=== PATIENT | male | born 1960 | race Caucasian/White ===

== ENCOUNTER 2018-02-14 00:14 | Emergency (ER) | payer BC, SELFPAY ==
[2018-02-14] VITALS (8 sets, daily range): BP systolic 135–160; BP diastolic 74–94; PULSE 73–89; RESP 16–20; TEMP 36.9; O2SAT 96–99; BMI 35.9
--- NOTE | 2018-02-14 00:18 | ED.RN ---
NO OLD EKG'S IN MUSE
--- NOTE | 2018-02-14 00:25 | EKG12_ITS ---
Test Reason : CP Blood Pressure : / mmHG Vent. Rate : 094 BPM Atrial Rate : 094 BPM P-R Int : 152 ms QRS Dur : 112 ms QT Int : 346 ms P-R-T Axes : 052 061 033 degrees QTc Int : 432 ms Normal sinus rhythm Normal ECG Confirmed by DIMPLE ESPINOZA MD ([id number]), proposal editor MIGUEL HANNAH ([id number]) on 02/17/2018 1:03:32 PM Referred By: SULTANA Confirmed By:DIMPLE ESPINOZA MD
--- NOTE | 2018-02-14 00:25 | RAD_ITS ---
STUDY: X-RAY CHEST REASON FOR EXAM: Male, 57 years old. Right-sided chest pain TECHNIQUE: 1 view COMPARISON: None. FINDINGS: The lungs are clear. The heart is not enlarged. No pleural effusions. A small caliber catheter is seen projecting over the right side of the neck and thoracic spine. It is presumably a ventriculoperitoneal shunt catheter Normal visualized thoracic spine. Normal visualized ribs, clavicles, and shoulders. There is no demonstrated abnormality of the visualized soft tissue structures of the upper abdomen. RAD/Chest 1 View (Portable) IMPRESSION: No acute findings in the lungs Electronically Signed: Tony Aiken, at 1:41 EDT Tel , Service support ,
[2018-02-14 00:32] LABS: Absolute Lymphocyte Count 2.18 X10^3/ul (0.83-4.51); Absolute Neutrophil Count 5.7 X10^3/uL (2.0-7.7); Basophil# 0.05 X10^3/uL; Basophil% 0.5 % (0-1); Eosinophil# 0.63 X10^3/uL; Eosinophils% 6.5 % (0-5); Hematocrit 52.5 % (40-54); Hemoglobin 17.6 g/dl (13.0-16.5); Lymphocyte # 2.18 X10^3/ul (4.0); Lymphocyte % 22.3 % (19-41); Mean Corp Hgb Conc 33.5 g/gl (32-36); Mean Corpuscular Hgb 30.6 pg (27.0-32.0); Mean Corpuscular Volume 91.3 fL (80-94); Mean Platelet Vol. 9.9 fl (6.2-12.0); Monocyte# 1.13 X10^3/uL; Monocyte% 11.6 % (0-10); Neutrophil # 5.74 X10^3/uL (2.7-7.7); Neutrophil % 58.8 % (47-70); Platelet Count 235 K/mm3 (150-450); RBC Distribution Width CV 13.2 % (11.6-14.6); RBC Distribution Width SD 43.8 fl (35.1-43.9); Red Blood Count 5.75 M/mm3 (4.6-6.2); White Blood Count 9.8 K/mm3 (4.4-11.0)
[2018-02-14] MEDS: Morphine 4 MG/ML Syringe IV ×2 (00:32→03:14)
[2018-02-14] MEDS: 0.9% Normal Saline 1,000 ML 150 ML IV (00:32)
[2018-02-14] MEDS: Aspirin 81 MG TAB.CHEW 324 MG PO (00:32)
[2018-02-14] MEDS: Ondansetron 4 MG/2 ML Vial IV ×2 (00:32→03:14)
[2018-02-14 00:33] LABS: POSITIVE COUNT NO; POSITIVE DIFFERENTIAL NO; POSITIVE MORPHOLOGY NO
--- NOTE | 2018-02-14 00:36 | ED.VISSUMM ---
- ER Visit Summary Date of Service: 02/14/18 Chief Complaint: Chest pain History of Present Illness: The patient is a 57 M with chest pain in the past couple of days. Today he states the pain has been constant. He points to the right upper chest and states he goes on his right arm. He has had some mild shortness of breath. Pain does not seem to worsen with exertion. He has a history of diabetes and hypertension. He believes he had a stress test the proximal 5 years ago. Physical Examination: Vital signs are significant for blood pressure 160/94, otherwise unremarkable. Patient's lying in bed no acute distress. Head neck examination is normal. Heart is regular rate and rhythm. Lung sounds are clear with good air movement. He has no chest wall pain with palpation. Abdomen is soft nontender. Lower extremity examination reveals no significant calf tenderness or edema. He has strong distal pulses. Test Results: EKG is sinus at 94 with no sign of acute ischemia. CBC is significant only for hemoglobin concentration at 17.6. Chemistry studies are significant for glucose of 165. Troponin is less than 0.015. D-dimer 0.32. Portable chest x-ray reveals chronic changes per my read. Emergency Department Course and Treatment: Patient was given aspirin, morphine, and Zofran. Test results were discussed with him. He would prefer not to be admitted but did agree to stay for 3 hour repeat EKG and blood work. Repeat EKG is unchanged and repeat troponin remains less than 0.015. Patient be discharged to follow-up with his primary care physician. He is encouraged to return if symptoms worsen or any other concerns arise. MARCELINA score: 0/7 Treatment Plan: [] Disposition: Discharge Impression: Chest pain This note was generated with [employer] dictation software. It may contain incorrect words, spelling, and punctuation that were not noted in review of the chart prior to signing ED Disposition - Plan for ED Patient: Chief Complaint: Chest Pain Referrals: Robinson Urbina DO [Primary Care Provider] -
[2018-02-14 00:39] LABS: D-Dimer Quantitative (DVT/PE) 0.32 FEU/ug/m (0.27-0.49)
[2018-02-14 00:43] LABS: Anion Gap 8 (5-15); BUN 20 mg/dL (7-18); BUN/Creat Ratio 16.4 RATIO (10-20); Chloride 105 mmol/L (98-107); Creatinine, Serum 1.22 mg/dL (0.70-1.30); EST Glomerular Filtration Rate 65 mL/min (>60); Est Glom Filt Rate - Afr Amer 79 mL/min (>60); Estimated Creatinine Clearance 68.98 ml/min; Glucose 165 mg/dL (74-106); Potassium 4.1 mmol/L (3.5-5.1); Sodium Level 141 mmol/L (136-145)
--- NOTE | 2018-02-14 03:00 | EKG12_ITS ---
Test Reason : CP Blood Pressure : / mmHG Vent. Rate : 079 BPM Atrial Rate : 079 BPM P-R Int : 166 ms QRS Dur : 100 ms QT Int : 364 ms P-R-T Axes : 043 026 015 degrees QTc Int : 417 ms Normal sinus rhythm Normal ECG Confirmed by DIMPLE ESPINOZA MD ([id number]), index editor MIGUEL HANNAH ([id number]) on 02/17/2018 1:03:47 PM Referred By: SULTANA Confirmed By:DIMPLE ESPINOZA MD
--- NOTE | 2018-02-14 03:27 | ED.DEP ---
ED Disposition - Plan for ED Patient: Disposition: Home or Assisted Living Chief Complaint: Chest Pain Instructions: ED Chest Pain Atypical Unkn Cause Referrals: Robinson Urbina DO [Primary Care Provider] - 3-5 Days
== END 2018-02-14 03:44 | disposition home or self-care (01) ==
PROVIDERS: Emergency Provider Emergency Medicine; Family Provider Preventive Medicine Occupational Medicine; PCP Preventive Medicine Occupational Medicine
DX: R07.9 Chest pain, unspecified (principal); E11.9 Type 2 diabetes mellitus without complications; I10 Essential (primary) hypertension; M19.90 Unspecified osteoarthritis, unspecified site; Z98.2 Presence of cerebrospinal fluid drainage device; Z79.84 Long term (current) use of oral hypoglycemic drugs; Z79.899 Other long term (current) drug therapy
CPT/HCPCS: 71045; 80048; 84484; 85025; 85379; 93005; 96361; 96374; 96375; 96376; 99285; J7030; A4216; J2405

== ENCOUNTER → 2018-08-24 10:18 | Outpatient (CLI) | payer BC, SELFPAY ==
--- NOTE | 2018-08-24 10:23 | MRI_ITS ---
STUDY: MRI LUMBAR SPINE WITHOUT CONTRAST REASON FOR EXAM: Male, 58 years old. Back pain into the right groin x10 years. Stenosis. TECHNIQUE: Standardized fat and water weighted pulse sequences were obtained in the sagittal and axial planes. COMPARISON: None FINDINGS: T10-T11: (Sagittal only). Normal endplates. Mild disc space height narrowing. Small posterior midline disc protrusion. Suspicious severe central canal stenosis. The intervertebral neural foramina are not included. T11-T12: (Sagittal only). Normal T11 inferior endplate. Old anterior wedging of upper T12 vertebral body. Moderate disc space height narrowing. No ventral extradural defect. Normal central canal and bilateral intervertebral neural foramina. Small round left-sided T11 benign vertebral body hemangioma. T12-L1: (Sagittal only). Mild anterior wedging of the vertebral endplates without bone edema. They're presumably from remote injury. Normal disc height, hydration and morphology. Normal central canal and bilateral intervertebral neural foramina. Normal lumbar lordosis. There is no substantial scoliosis. Normal conus medullaris that terminates at the upper T12 vertebral body level. L1-2: Anterior marginal spurs. Schmorl's node in the L1 inferior endplate. Normal L2 superior endplate. Moderate disc space height narrowing. Small posterior bulging disc. Mild to moderate central canal stenosis with an AP canal diameter of 8.3 mm. This is secondary to developmentally short pedicles and dorsal epidural lipomatosis. Mild degenerative facet arthropathy. Normal bilateral intervertebral neural foramina. L2-3: Anterior marginal spurs. Moderately pronounced disc space height narrowing with Modic type I degenerative vertebral marrow edema underneath the left side of the vertebral endplates. Mild degenerative retrolisthesis of L2 on L3. Mild central canal stenosis with an AP canal diameter of 9 mm. This is secondary to developmentally short pedicles and dorsal epidural lipomatosis. Normal bilateral lateral recesses. Mild bilateral degenerative facet arthropathy. Normal bilateral intervertebral neural foramina. L3-4: Pronounced disc space height narrowing with Modic type II degenerative vertebral marrow fatty changes underneath the vertebral endplates. Mild degenerative retrolisthesis of L3 on L4 with small posterior midline disc protrusion. Mild to moderate central canal stenosis with an AP canal diameter of 8.2 mm. Left posterior ligamentum flavum hypertrophy. Mild asymmetric degenerative facet arthropathy. Normal bilateral intervertebral neural foramina. L4-5: Pronounced right-sided disc space height narrowing with mild Modic type II degenerative vertebral marrow fatty changes underneath the right side of the vertebral endplates. No extruded disc fragment. Mild to moderate central canal stenosis with an AP canal diameter of 8.2 mm. Moderate right degenerative facet hypertrophy. Mild left degenerative facet arthropathy. Moderately pronounced stenosis of the right intervertebral neural foramen. Mild stenosis of the left intervertebral neural foramen. L5-S1: Pronounced disc space height narrowing. Modic type II degenerative vertebral marrow fatty changes underneath the vertebral endplates. Anterior posterior marginal spurs. Normal central canal and bilateral lateral recesses. Mild to moderate bilateral degenerative facet arthropathy. Moderate stenosis of the bilateral intervertebral neural foramina. Normal visualized sacral ala. Normal visualized paraspinous soft tissue structures. MRI/Spine Lumbar (Routine) IMPRESSION: 1. Moderately pronounced L2-L3 disc space height narrowing with Modic type I degenerative vertebral marrow edema underneath the left side of the vertebral endplates, mild degenerative retrolisthesis of L2 on L3, mild central canal stenosis and mild bilateral degenerative facet arthropathy. 2. Pronounced L3-L4 disc space height narrowing with mild degenerative retrolisthesis of L3 on L4, small posterior midline disc protrusion, mild to moderate central canal stenosis, left posterior ligamentum flavum hypertrophy and mild asymmetric due to facet arthropathy. 3. Pronounced L4-L5 disc space height narrowing with mild to moderate central canal stenosis, moderate right degenerative facet arthropathy, mild left degenerative facet arthropathy, moderate pronounced stenosis of the right intervertebral neural foramen and mild stenosis of the left intervertebral neural foramen. 4. Pronounced L5-S1 disc space height narrowing, mild to moderate degenerative facet arthropathy and moderate stenosis of the bilateral intervertebral neural foramina. 5. Moderate L1-L2 disc space height narrowing with small posterior bulging disc and mild to moderate central canal stenosis. 6. Suspicious severe central canal stenosis at T10-T11 disc level. RECOMMENDATION: MRI of the thoracolumbar junction for further evaluation. Electronically Signed: Adonis Quintanilla MD at 16:04 EST , Service support ,
== END ==
PROVIDERS: Family Provider Preventive Medicine Occupational Medicine; PCP Preventive Medicine Occupational Medicine; Referring Provider Orthopaedic Surgery; Visit Provider Orthopaedic Surgery
DX: M48.062 Spinal stenosis, lumbar region with neurogenic claudication (principal)
CPT/HCPCS: 72148

== ENCOUNTER 2018-10-19 20:22 | Emergency (ER) | payer BC, SELFPAY ==
[2018-10-19 20:26] VITALS: BP 162/89; PULSE 81; PULSE 84; RESP 17; RESP 18; TEMP 36.6; O2SAT 97; O2SAT 98; BMI 37.2
[2018-10-19] MEDS: Diphth,Pertuss(Acell),Tet Vac 0.5 ML Vial IM (22:11)
--- NOTE | 2018-10-19 22:21 | ED.VISSUMM ---
- ER Visit Summary Date of Service: 10/19/18 Chief Complaint: Laceration right upper eyelid History of Present Illness: The patient is a 58 M who presents with a laceration to his right upper eyelid that occurred earlier today. Patient states his dog scratched him and caused a laceration. Patient states he went to an urgent care and was referred here for closure. Patient denies any visual changes. Patient denies any eye injury itself. Patient is unsure of his last tetanus. Patient denies any headaches. Physical Examination: Vital signs are stable. Patient is afebrile. Patient is in no acute distress. Skin is warm and dry. There is a 2 cm laceration of the skin of the upper eyelid. It does not extend through the tarsal plate or lid margin. There is minimal gapping of the wound margins. There are no foreign bodies noted. Pupils are equal, round, reactive to light bilaterally. Extraocular muscles are intact. Conjunctiva is clear. Cranial nerves II through XII are intact. There are no focal motor or sensory deficits noted. The remaining physical exam is within normal limits. Emergency Department Course and Treatment: The wound was cleaned with Shur-Clens. The wound was closed with Dermabond skin adhesive. Patient tolerated procedure well. Patient was instructed to avoid bacitracin, Neosporin, and Vaseline-based ointments to prevent glue breakdown. Patient was instructed to follow-up with his primary care physician in 5-7 days for wound recheck. Patient understood and was agreeable with the plan. All questions were answered. Disposition: Discharge home Impression: Right eyelid laceration This note was generated with [employer] dictation software. It may contain incorrect words, spelling, and punctuation that were not noted in review of the chart prior to signing ED Disposition - Plan for ED Patient: Disposition: Home or Assisted Living Chief Complaint: Laceration Diagnosis: Right eyelid laceration Instructions: ED Laceration Facial Skin Glue Referrals: Robinson Urbina DO [Primary Care Provider] -
--- NOTE | 2018-10-19 22:25 | ED.DCSUM_ITS ---
- ER Visit Summary Date of Service: 10/19/18 Chief Complaint: Laceration right upper eyelid History of Present Illness: The patient is a 58 M who presents with a laceration to his right upper eyelid that occurred earlier today. Patient states his dog scratched him and caused a laceration. Patient states he went to an urgent care and was referred here for closure. Patient denies any visual changes. Patient denies any eye injury itself. Patient is unsure of his last tetanus. Patient denies any headaches. Physical Examination: Vital signs are stable. Patient is afebrile. Patient is in no acute distress. Skin is warm and dry. There is a 2 cm laceration of the skin of the upper eyelid. It does not extend through the tarsal plate or lid margin. There is minimal gapping of the wound margins. There are no foreign bodies noted. Pupils are equal, round, reactive to light bilaterally. Extraocular muscles are intact. Conjunctiva is clear. Cranial nerves II through XII are intact. There are no focal motor or sensory deficits noted. The remaining physical exam is within normal limits. Emergency Department Course and Treatment: The wound was cleaned with Shur- Clens. The wound was closed with Dermabond skin adhesive. Patient tolerated procedure well. Patient was instructed to avoid bacitracin, Neosporin, and Vaseline-based ointments to prevent glue breakdown. Patient was instructed to follow-up with his primary care physician in 5-7 days for wound recheck. Patient understood and was agreeable with the plan. All questions were answered. Disposition: Discharge home Impression: Right eyelid laceration This note was generated with [employer] dictation software. It may contain incorrect words, spelling, and punctuation that were not noted in review of the chart prio r to signing ED Disposition - Plan for ED Patient: Disposition: Home or Assisted Living Chief Complaint: Laceration Diagnosis: Right eyelid laceration Instructions: ED Laceration Facial Skin Glue Referrals: Robinson Urbina DO [Primary Care Provider] -
[2018-10-19 22:43] VITALS: BP 149/71; PULSE 82; RESP 14; O2SAT 97
== END 2018-10-19 22:46 | disposition home or self-care (01) ==
PROVIDERS: Emergency Provider Emergency Medicine; Family Provider Preventive Medicine Occupational Medicine; PCP Preventive Medicine Occupational Medicine
DX: S01.111A Laceration without foreign body of right eyelid and periocular area, initial encounter (principal); W54.1XXA Struck by dog, initial encounter; Y93.9 Activity, unspecified; Y92.9 Unspecified place or not applicable; E11.9 Type 2 diabetes mellitus without complications; G91.9 Hydrocephalus, unspecified; F12.90 Cannabis use, unspecified, uncomplicated; Z79.84 Long term (current) use of oral hypoglycemic drugs
CPT/HCPCS: 12011; 90471; 90715; 99282

== ENCOUNTER → 2018-11-19 16:50 | Outpatient (CLI) | payer BC, SELFPAY | PROVIDERS: Family Provider Preventive Medicine Occupational Medicine; PCP Preventive Medicine Occupational Medicine; Referring Provider Nurse Practitioner Adult Health; Visit Provider Nurse Practitioner Adult Health | DX: R30.0 Dysuria (principal) | CPT/HCPCS: 87086 ==

== ENCOUNTER 2019-02-12 13:30 | Outpatient (RCR) | payer BC, SELFPAY ==
--- NOTE | 2018-12-31 10:01 | HP.PTEVAL_ITS ---
Patient's Visit Information BEVERLY VILLALPANDO is a 58 year old M referred to Physical Therapy by Michelle Antoine NP-C with a diagnosis of S/P LUMBAR FUSION. Date of Evaluation: 12/31/18 Physical Therapist: Husam Vázquez, PT, Cert MDT, OCS - Visit Plan Frequency: 2x /Week Duration: 6 Weeks Plan: s/p LUMBAR FUSION. BRACE CAN BE REMOVED WHEN RESTING ,SUPINE ,ON WHEN WALKING STANDING. INTERNENTION GRADE LE FLAXABLITY,DLS ,LE FLEXABLITY /STRENGTHENING,LUMBAR ROM ABLE,POSTURAL EX'S - Subjective Findings: This 58 y/o male presensts to physical therapy with s/p lumbar fusion L2-5 on Nov [address] [facility] . Paient fusion rods /screw/cage. Patient was d/c Nov 13 for 5 days with some complication blood in urine ,severe pain. Patient d/c home lumbar brace and fww.Patient had Home PT 3weeks. Patient recently seen 2weeks ago ,no BLT ,no lifting ex a gallon of milk.Did x-rays looked good.Prior to surgery 25 tears ,had MRI DDD/STENOSIS. Patient has neuropathy in feet. Patient lumbar sacral,right groin. Aggravateing factors standing,walking.Alleviating symptoms siiting ,resting,MEDS. Coughing/sneezing + with pain. Bowel/bladder -. Prior to surgery pain management.Lumbar brac on when up walking and standing okay to remove walking .standing okay to remove resting..RTD 01/23/19 Patient pain affects QOL and function.Patient comorbities include scarodosis,head trauma hyd ocephalus -s/p shunt, cervical fusion . SOCAIL: . VOCATION: disablity - Pain Bilateral Back Pain Intensity (Out of 10): 4 Pain Intensity Range: 10 - Objective POSTURE: mild foward posture. PALAPTION: tender L-S. INSCION: well approxiamte. GAIT: mild foward posture slow niels reciprocal pattern decrease step length. NEURO: c/o parathesia feet from neuropathy ,reflexes L3-4,L4-5,L5-S1 2/3. FLEXABLITY: hams min/mod loss. MMT: quads/hams/hip flexion 4-/5 ANKLE 4-/5 GTE 3/5. LUMBAR ROM: flexion/extesnion,side glides severe loss. TA/MULTIFIDAS ACTIVATION: fair - Special Tests L/S Slump test left side: Negative L/S Slump test right side: Negative L/S Left Straight Leg Raise: Negative L/S Right Straight Leg Raise: Negative - Goals Goal 1:: Independant with HEP Goal Time Frame: 4-6 Weeks Goal 2:: Improve posture for ADL'S Goal Time Frame: 4-6 Weeks Goal 3:: Decrease lumbar pain by 50% or greater to improve function with walking and standing. Goal Time Frame: 4-6 Weeks Goal 4:: Patient improve lumbar rom for function of recovery Goal Time Frame: 4-6 Weeks Goal 5:: Patient to improve LETHA back score by 5 points or greater. Goal Time Frame: 4-6 Weeks Goal 6:: Patient return to ADLS' and housework tasks with min limiations Goal Time Frame: 4-6 Weeks - Rehabilitation Potential Physical Therapy Diagnosis: Patient underwent s/p lumbar fusion with pain ,poor lumbar ROM ,weaknss,decrease gait standing affects ADL'S and function thus benifit from skilled PT Rehabilitation Potential: Good - Anticipated Interventions Patient/Client Instruction: Educate patient on: Condition, Plan of Care For the Purpose of:: To decrease pain, To decrease swelling/inflammation, To improve muscle performance and motor function, To improve ability to perform ADL's, To increase tolerance to activity/condition/position, To improve ability of physical actions for home/community/work/leisure, To improve health of tissue, To decrease soft tissue restriction, To increase flexibility/ROM, To assume or resume ADL's, To improve ability to perform tasks related to life management Therapeutic Exercise to Include: Strength training, Body mechanics, Postural training, Flexibilty training, Active ROM, Dynamic Lumbar Stabilization For the Purpose of:: To decrease pain, To increase ROM, To improve muscle performance and motor function, To improve ability to perform ADL's, To increase tolerance to activity/condition/position, To improve ability of physical actions for home/community/work/leisure, To improve health of tissue, To decrease soft tissue restriction, To increase flexibility/ROM, To improve ability to perform tasks related to life management TENS: Yes IF ES: Yes Cryotherapy (ice pack, ice massage): Yes Thermo therapy (hot pack): Yes For the Purpose of:: To decrease pain, To increase ROM, To improve nutrient delivery to tissue, To increase oxygenation perfusion, To improve health of tissue, To decrease soft tissue restriction Thank you for the opportunity to evaluate your patient. For Medicare and Medicare HMO plans, please review the plan of care and approve it. It will need to be FAXED BACK to us at [phone] for Medicare purposes. For Medicare only, by signing this I certify the plan of care. Please let me know if there are questions or concerns regarding this plan of care. Physician Signature: Date:
--- NOTE | 2019-02-12 14:00 | HP.PTDCSUM ---
HP - PT D/C Summary It has been my pleasure to treat BEVERLY VILLALPANDO under orders from Michelle Antoine NP-C, for the diagnosis of S/P LUMBAR FUSION for a total of 12 visit(s). Discharge Date: 02/12/19 Please see the following information for a summary of their discharge status. - Subjective Subjective: Doing better overall.Pain is alot better .Patient has difficulty with housework tasks and ADL'S. - Pain Bilateral Back Pain Intensity (Out of 10): 2 - Overall Improvement % Improvement: 70 - Objective Objective/Function: POSTURE: mild foward posture. GAIT: normal niels mild foward posture. SYMMRIES: align. MMT: 4/5 quads/hams/hip flexion,ankle - Goals Goal 1:: Independant with HEP Goal Progress: Goal Met Goal 2:: Improve posture for ADL'S Goal Progress: Goal Met Goal 3:: Decrease lumbar pain by 50% or greater to improve function with walking and standing. Goal Progress: Goal Met Goal 4:: Patient improve lumbar rom for function of recovery Goal Progress: Goal Met Goal 5:: Patient to improve LETHA back score by 5 points or greater. Goal Progress: Goal Met Goal 6:: Patient return to ADLS' and housework tasks with min limiations Goal Progress: Goal Met - Plan Plan: D/C TO HOME PROGRAM - D/C Information Discharge Comments: HEP If there are questions or concerns regarding this patient's physical therapy, please feel free to call me at [phone]. Thank you for the referral of this patient. Sincerely, Husam Vázquez, PT, Cert MDT, OCS
== END 2019-02-12 19:00 | disposition home or self-care (01) ==
LOC: PT 13:30
PROVIDERS: Family Provider Preventive Medicine Occupational Medicine; PCP Preventive Medicine Occupational Medicine; Referring Provider Nurse Practitioner Acute Care; Visit Provider Nurse Practitioner Acute Care
DX: Z98.1 Arthrodesis status (principal)
CPT/HCPCS: 97110; 97162; 97530

== ENCOUNTER → 2022-12-16 | Outpatient (CLI) | payer MEDICARE, SELFPAY ==
--- NOTE | 2022-12-16 09:43 | ECHOD_ITS ---
Reason For Study: SOB Procedure This was a 2D Doppler, Color Flow transthoracic echocardiogram. Exam performed in department. Left Ventricle Normal LV size. Mild concentric left ventricular hypertrophy. The left ventricular ejection fraction is 45 %. Stage 1 diastolic dysfunction. There is mild global hypokinesis of the left ventricle. Right Ventricle Normal RV size. Normal systolic function. Atria Normal left atrium. Normal right atrium. Mitral Valve Normal mitral valve. Tricuspid Valve Normal tricuspid valve. Mild tricuspid valve insufficiency. Pulmonary artery systolic pressure is 23 mmHg. Aortic Valve Trisinus/trileaflet aortic valve. Pulmonic Valve Normal pulmonic valve. Great Vessels Normal aortic root. The pulmonary artery is normal size. Normal inferior vena cava. Pericardium/Pleural No pericardial effusion. MMode/2D Measurements & Calculations LVIDd: 5.0 cm IVSd: 1.4 cm Ao root diam: 3.3 cm LVIDs: 3.6 cm LVPWd: 1.2 cm FS: 27.5 % LAV(MOD-sp4): 26.1 ml LVAd ap4: 33.4 cm2 SV(MOD-sp4): 57.5 ml LVLd ap4: 8.2 cm EDV(MOD-sp4): 111.2 ml EDV(sp4-el): 115.6 ml LVAs ap4: 22.0 cm2 LVLs ap4: 7.6 cm ESV(MOD-sp4): 53.7 ml ESV(sp4-el): 54.3 ml EF(MOD-sp4): 51.7 % EF(sp4-el): 53.0 % SV(sp4-el): 61.3 ml LA A4 area: 12.5 cm2 LA dimension(2D): 4.2 cm RA A4 area: 15.4 cm2 Time Measurements MV dec time: 0.16 sec Doppler Measurements & Calculations MV E max can: 62.2 cm/sec Lat Peak E' Can: 6.6 cm/sec Med Peak E' Can: 6.3 cm/sec MV A max can: 81.3 cm/sec E/E' lat: 9.4 E/E' med: 9.9 MV E/A: 0.77 MV V2 max: 96.7 cm/sec Ao V2 max: 115.2 cm/sec MV max P.7 mmHg MV dec slope: 440.1 cm/sec2 Ao max P.3 mmHg MV V2 mean: 54.8 cm/sec MV mean P.4 mmHg MV V2 VTI: 18.6 cm LV V1 max: 93.6 cm/sec TR max can: 225.2 cm/sec LV V1 max P.5 mmHg TR max P.3 mmHg ECHO/Echo Complete Interpretation Summary Normal LV size. The left ventricular ejection fraction is 45 %. There is mild global hypokinesis of the left ventricle. Stage 1 diastolic dysfunction. Pulmonary artery systolic pressure is 23 mmHg. Mild concentric left ventricular hypertrophy. Ordering Physician: Estevan Ramos Referring Physician: MD Ciara Robinson Performed By: Priyanka Red RCS
== END | disposition home or self-care (01) ==
PROVIDERS: PCP Preventive Medicine Occupational Medicine; Visit Provider Nurse Practitioner Family
DX: R06.02 Shortness of breath (principal); E78.5 Hyperlipidemia, unspecified
CPT/HCPCS: 93306